=== PATIENT | female | born 1960 | race Caucasian/White ===

== ENCOUNTER → 2019-07-11 | Outpatient (CLI) | payer OTHER ==
--- NOTE | 2019-07-11 16:03 | REP ---
Bilateral lower extremity duplex venous ultrasound: Venous insufficiency study. History: Venous insufficiency. Varicose veins lower extremities with pain. Right lower extremity findings: Significant venous reflux is observed in the deep system as well as the greater saphenous vein proximal and mid level. There are collateral veins at the gastrocnemius in the proximal calf extending to the distal calf with reflux. Reflux greater than 0.5 seconds in duration is observed in the common femoral vein, proximal and mid greater saphenous vein, proximal superficial femoral vein, mid superficial femoral vein, and popliteal vein. The greater saphenous vein measures 4.4 mm in AP dimension at the saphenofemoral junction and demonstrates 2.2 seconds of reflux. Its dimensions are 4.2 mm at mid thigh where there is 5.7-second duration reflux. The greater saphenous vein measures 3.1 mm at the knee without visible reflux. The lesser saphenous vein measures 1.8 mm. Left lower extremity findings: There is reflux in the deep system in the left lower extremity including the common femoral vein through the popliteal vein. Reflux is observed in the mid and distal greater saphenous vein. There is a proximal calf collateral vein extending down to the foot with reflux and varicosities. The greater saphenous vein at the level of the proximal saphenofemoral junction is 5.1 mm in diameter. The greater saphenous vein measures 2.4 mm in diameter at mid thigh where there is 5 seconds duration reflux. The greater saphenous vein at the knee measures 2.7 mm where there is 1.3 seconds duration reflux. The lesser saphenous vein measures 2.4 mm. Impression: Bilateral deep and superficial system venous reflux. Electronically Signed by Edd Ramos MD 07/11/2019 04:30 P
== END ==
LOC: M RAD 08:43
PROVIDERS: ATTEND Surgery Vascular Surgery
DX: I83.813 Varicose veins of bilateral lower extremities with pain (principal)

== ENCOUNTER → 2019-09-18 | Outpatient (REF) | LOC: M LAB LCGH 15:33 | PROVIDERS: ATTEND Surgery | DX: K81.1 Chronic cholecystitis (principal); K80.80 Other cholelithiasis without obstruction ==

== ENCOUNTER → 2020-01-20 | Outpatient (CLI) | payer OTHER | LOC: M PAIN 10:30 | PROVIDERS: ATTEND Nurse Practitioner Family | DX: Z53.20 Procedure and treatment not carried out because of patient's decision for unspecified reasons (principal) ==

== ENCOUNTER → 2020-02-04 | Outpatient (CLI) | payer OTHER ==
--- NOTE | 2020-02-06 01:51 | ECWPNPC ---
PATIENT NAME: OSWALD SCHAFER : 1960 GENDER: FEMALE VISIT DATE: 02/04/2020 DISCHARGE DATE: 02/04/20 1148 VISIT LOCKED DATE TIME: PHYSICIAN: NETTE PAZ RESOURCE: NETTE PAZ REASON FOR APPOINTMENT 1. NECK AND BACK HISTORY OF PRESENT ILLNESS PAIN SCREENING: PATIENT HAS A COMPLAINT OF ACUTE OR CHRONIC PAIN :YES LOCATION OF PAIN:NECK, LOW BACK INTENSITY OF PAIN (SCALE OF 1 TO 10):6 WHAT DOES YOUR PAIN FEEL LIKE:ACHING, SORE DURATION:MAINLY DURING THE DAY, AWAKENS FROM SLEEP 59-YEAR-OLD FEMALE IN FOR INITIAL PAIN CONSULT. SHE STATES THE PAIN IS LOCATED IN HER NECK AND BACK RATING HER PAIN CURRENTLY AT A 6 OUT OF 10 AND DESCRIBING IT ACHING, AND SORE. THE PATIENT WAS HURT IN A WORK RELATED INCIDENT IN 2009 SHE IS CURRENTLY COVERED UNDER WORKERS COMPENSATION HOWEVER HER CASE ENDS IN SEPTEMBER 2020. THE PATIENT HAS TAKEN PHYSICAL THERAPY IN THE PAST TO HELP WITH HER SYMPTOMS AND SHE ADMITS TO SOME RELIEF WITH THIS. FALL RISK SCREENING: SCREENING :NO FALLS REPORTED IN THE LAST YEAR CURRENT MEDICATIONS TAKING METHOTREXATE 2.5 MG TABLET 8 TABLETS WEEKLY ORALLY TAKING FOLIC ACID 1 MG TABLET 1 TABLET ORALLY ONCE A DAY TAKING HUMIRA 40 MG/0.8ML PREFILLED SYRINGE KIT 0.8 ML SUBCUTANEOUS EVERY OTHER WEEK TAKING NAPROXEN 500 MG TABLET 1 TABLET WITH FOOD OR MILK ORALLY EVERY 12 HRS TAKING PANTOPRAZOLE SODIUM 40 MG TABLET DELAYED RELEASE 1 TABLET ORALLY ONCE A DAY TAKING ALEVE 220 MG TABLET 2 TABLETS WITH FOOD OR MILK NEEDED ORALLY EVERY 12 HRS NEEDED MEDICATION LIST REVIEWED AND RECONCILED WITH THE PATIENT PAST MEDICAL HISTORY POLYNEUROPATHY LOW BACK PAIN NECK PAIN SHOULDER PAIN HEADACHE DEPRESSION LEG PAIN RHEUMATOID ARTHRITIS 2017 VARICOSE VEINS PYRIDOXINE DEFICIENCY SEVERE DEGENERATIVE DISC DISEASE AT L5-S1 WITH A GRADE 1 SPONDYLOLISTHESIS OF L5 ON S1 MODERATELY SEVERE OSTEOARTHRITIC CHANGES IN THE L5-S1 FACETS 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 SOCIAL HISTORY GENERAL: TOBACCO USE ARE YOU A:NONSMOKER OTHERS AT HOME: NONE. DIET: REGULAR WITH MODIFICATIONS DUE TO DIVERTICULOSIS. LANGUAGE LANGUAGES SPOKEN:CZECH RECREATIONAL DRUG USE DRUG USE?NO EXERCISE: SHOULDER STRETCHES. LEARNING BARRIERS / SPECIAL NEEDS HEARING IMPAIRED?YES VISION IMPAIRED?YES COGNITIVELY IMPAIRED?NO :HEARING AIDES :CORRECTIVE LENSES READINESS TO LEARN?YES LEARNING PREFERENCES?NO PAIN CLINIC PFS, CLERGY, PUBLIC HEALTH REFERRALS PFS REFERRAL NEEDED?NO CLERGY REFERRAL NEEDED?NO PUBLIC HEALTH REFERRAL NEEDED?NO WAS THE PROVIDER NOTIFIED OF ANY PERTINENT INFO? N/A HAS THE PATIENT BEEN EDUCATED REGARDING HIS/HER PLAN OF CARE?YES HAS THE PATIENT BEEN EDUCATED REGARDING PAIN, THE RISK FOR PAIN, THE IMPORTANCE OF EFFECTIVE PAIN MANAGEMENT, AND THE PAIN ASSESSMENT PROCESS?YES LATEX QUESTIONNAIRE LATEX ALLERGY : HAVE YOU EVER DEVELOPED ANY TYPE OF REACTION AFTER HANDLING LATEX PRODUCTS SUCH RUBBER GLOVES, CONDOMS, DIAPHRAGMS, BALLOONS, SOCKS, OR UNDERWEAR?NO LATEX ALLERGY : HAVE YOU EVER DEVELOPED ANY TYPE OF REACTION DURING OR AFTER DENTAL APPOINTMENT, VAGINAL/RECTAL EXAMINATION, SURGICAL PROCEDURE, OR ANY OTHER EXPOSURE?NO DATE ASKED : 01/16/2020 LATEX RISK : HAVE YOU EVER HAD ANY DIFFICULTY BREATHING OR HIVES AFTER EATING OR HANDLING ANY FRUITS, OR VEGETABLES; SUCH KIWI, BANANAS, STONE FRUITS, OR CHESTNUTSNO LATEX RISK : DO YOU HAVE A PREVIOUS PERSONAL HISTORY OF MORE THAN NINE SURGERIES, SPINA BIFIDA, OR REPEATED CATHERIZATIONS? NO LATEX RISK : ARE YOU FREQUENTLY EXPOSED TO LATEX PRODUCTS IN YOUR OCCUPATION?YES CAFFEINE CAFFEINE USE?YES HOW OFTEN AND HOW MUCH? OCCASIONALLY HAS CHOCOLATE OR SODA ADVANCE DIRECTIVE ADVANCE DIRECTIVE DISCUSSED WITH PATIENT:YES DAUGHTER GENESIS FERNANDES BROTHER JUANITA DO NOT RESUSCITATE FAITH [id number] SIKHISM MARITAL STATUS: .. ALCOHOL SCREENING DID YOU HAVE A DRINK CONTAINING ALCOHOL IN THE PAST YEAR?YES HOW OFTEN DID YOU HAVE SIX OR MORE DRINKS ON ONE OCCASION IN THE PAST YEAR?NEVER (0 POINTS) HOW MANY DRINKS DID YOU HAVE ON A TYPICAL DAY WHEN YOU WERE DRINKING IN THE PAST YEAR?3 OR 4 (1 POINT) HOW OFTEN DID YOU HAVE A DRINK CONTAINING ALCOHOL IN THE PAST YEAR?MONTHLY OR LESS (1 POINT) POINTS2 INTERPRETATIONNEGATIVE OCCUPATION: SUPERVISOR [employer]. PRE-SCREENING PHONE CALL DONE 01-16-20 Indra CHANDRA RN. HOSPITALIZATION/MAJOR DIAGNOSTIC PROCEDURE SURGERIES DIVERTICULITIS 05/2015 REVIEW OF SYSTEMS REVIEWED BY: PROVIDER: FRANK PADILLA . CONSTITUTIONAL: ANY CHANGE IN YOUR MEDICAL CONDITION? NO . CHILLS NO . FEVER NO . INFECTION: DO YOU HAVE NEW INFECTIONS? NO . DO YOU HAVE HISTORY OF MRSA? NO . MUSCULOSKELETAL: ANY NEW PATTERNS OF PAIN OR NUMBNESS? YES, NOT BAD FIRST WHEN PT. WAS WORKING 5 DAYS A WEEK . SYTEMIC LUPUS NO . GASTROENTEROLOGY: ANY NEW CHANGE IN BOWEL CONTROL? NO . BARRETTS ESOPHAGUS NO . CIRRHOSIS NO . HEPATITIS NO . LIVER FAILURE NO . ACID REFLUX NO . UNEXPLAINED WEIGHT LOSS NO . GENITOURINARY: ANY NEW CHANGE IN BLADDER CONTROL? NO . IS THERE A CHANCE YOU COULD BE ? NO . HEMATOLOGY/LYMPH: DO YOU TAKE ANY BLOOD THINNERS? (FOR EXAMPLE- COUMADIN, PLAVIX, AGGRENOX, PLATEL, PRADAXA, OR XARELTO) NO . WHEN WAS YOUR LAST DOSE? DATE: TIME: . LOW PLATELET COUNT NO . SICKLE CELL DISEASE NO . VON WILLIEBRANDS NO . FACTOR V LEIDEN NO . THALLASEMIA NO . ANEMIA NO . EASY BRUISING NO . NEUROLOGY: HAVE YOU FALLEN IN THE PAST 12 MONTHS? NO . ANY NEW EXTREMITY NUMBNESS OR WEAKNESS? NO . HEAD INJURY NO . DEMENTIA NO . CEREBRAL PALSY NO . MULTIPLE SCLEROSIS NO . DIZZINESS NO . HEADACHE NO . STROKES NO . VERTIGO NO . CARDIOLOGY: DO YOU HAVE A PACEMAKER OR DEFIBRILLATOR? NO . ANGINA NO . HEART ATTACK NO . HEART SURGERY NO . CONGESTIVE HEART FAILURE/FLUID OVERLOAD NO . CHEST PAIN NO . HIGH BLOOD PRESSURE NO . IRREGULAR HEART BEAT NO . RESPIRATORY: HAVE YOU BEEN SICK IN THE PAST WEEK? NO . FEVER NO . FLU LIKE SYMPTOMS? NO . CPAP NO . BYPAP NO . ASTHMA NO . EMPHYSEMA NO . CHRONIC LUNG DISEASES NO . SHORTNESS OF BREATH ON EXERTION NO . COUGH NO . SNORING NO . INTEGUMENTARY: DO YOU HAVE ANY RASHES OR OPEN SORES? NO . ALLERGIC/IMMUNO: ARE YOU ALLERGIC TO IV DYE? NO . ANY NEW ALLERGIES? NO . PSYCHIATRIC: DO YOU HAVE THOUGHTS OF HURTING YOURSELF OR SOMEONE ELSE? NO . ARE YOU ABUSED, NEGLECTED, OR IN AN UNSAFE ENVIRONMENT? NO . ENDOCRINOLOGY: ARE YOU DIABETIC? NO . THYROID DISORDER NO . OTHER: DO YOU NEED ANY PRESCRIPTIONS? NO . IF YES, PLEASE LIST: ____ . ANY NEW PROBLEMS WITH YOUR MEDICATIONS? NO . WHEN DID YOU LAST EAT? ____ . WHEN DID YOU LAST DRINK? ____ . WHAT DID YOU LAST DRINK? ____ . NAME OF PERSON DRIVING YOU HOME? ____ . DO YOU HAVE ANY OTHER QUESTIONS OR CONCERNS YES, WANTS TO DISCUSS THE DIFFERENCE BETWEEN PAIN CLINIC AND PHYSICAL THERAPY, AND ALSO PAIN TREATMENT OPTIONS . VITAL SIGNS WT 143.6 LBS, HT 56 IN, BMI 32.19 INDEX, BP 116/77 MM HG, HR 63 /MIN, RR 18 /MIN, TEMP 97.0 F, OXYGEN SAT % 97%, SAFE IN ENV? (Y/N) YES, NA INITIALS AW 1054, REVIEWED BY: KARIN PEDRAZA LPN. EXAMINATION GENERAL EXAMINATION: GENERALNO ACUTE DISTRESS, WELL NOURISHED AND HYDRATED. PSYCHAPPROPRIATE MOOD AND AFFECT . NECK:DENIES POINT TENDERNESS ALONG CERVICAL SPINE, SURROUNDING SKIN SHOWS NO ERYTHEMA, ECCHYMOSIS, INCREASED WARMTH, AND/OR SKIN ERUPTIONS NOTED. PATIENT DOES ENDORSE INCREASED PAIN WITH FACET LOADING ON THE RIGHT SIDE. . LUNGS:CLEAR TO AUSCULTATION BILATERALLY, NO WHEEZES, RHONCHI, RALES. HEART:NO MURMURS, REGULAR RATE AND RHYTHM. BACK:DENIES POINT TENDERNESS ALONG LUMBAR SPINE, SURROUNDING SKIN SHOWS NO ERYTHEMA, ECCHYMOSIS, INCREASED WARMTH, AND/OR SKIN ERUPTIONS NOTED. . MUSCULOSKELETAL:NOTABLE WEAKNESS OF THE RIGHT LOWER EXTREMITY HOWEVER PATIENT STATES SHE HAD A RECENT HIP REPLACEMENT AND THAT IS THE REASON FOR THE WEAKNESS, LEFT LOWER EXTREMITY WITHIN NORMAL LIMITS . 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 CLINICAL NOTES: 59-YEAR-OLD FEMALE IN FOR WORKER'S COMP. CHRONIC PAIN INITIAL PAIN VISIT CONSULT. GIVEN PRESENTING SYMPTOMS AND RESULTS PHYSICAL EXAMINATION RECOMMEND THERAPEUTIC CERVICAL FACET BLOCK C5-C6 C6-C7 WITH POST PROCEDURAL FOLLOW-UP. PATIENT HAS EXPRESSED UNDERSTANDING OF AND WAS IN AGREEMENT WITH TREATMENT PLAN. GIVEN TIME TO ASK QUESTIONS AND EXPRESS CONCERNS. PROCEDURES PN WORKMANS' COMP OPINION IN YOUR OPINION, WAS THE INCIDENT THAT THE PATIENT DESCRIBED THE COMPETENT MEDICAL CAUSE OF THIS INJURY/ILLNESS? YES ARE THE PATIENT'S COMPLAINTS CONSISTENT WITH HIS/HER HISTORY OF THE INJURY/ILLNESS? YES IS THE PATIENT'S HISTORY OF THE INJURY/ILLNESS CONSISTENT WITH YOUR OBJECTIVE FINDING? YES WHAT IS THE PERCENTAGE OF TEMPORARY IMPAIRMENT? MODERATE TO MARKED = 66.7% IS THE PATIENT WORKING? YES DOCTOR ON SITE: ELIZ PIERCE MD PROCEDURE CODES FA211 ESTABILISHED PATIENT [facility] CHARGE DISPOSITION & COMMUNICATION FOLLOW UP POSTPROCEDURE (REASON: THERAPEUTIC CERVICAL FACET BLOCK C5-C6-C6-C7) ELECTRONICALLY SIGNED BY ABDIEL MORALES ON 02/05/2020 AT 08:27 AM EDT DISCLAIMER : THIS IS A VISIT SUMMARY EXTRACTED FROM THE [employer] CHART. IT IS NOT A COPY OF THE [employer] PROGRESS NOTE. PARISA
== END ==
LOC: M PAIN 10:30
PROVIDERS: ATTEND Family Medicine
DX: M47.812 Spondylosis without myelopathy or radiculopathy, cervical region (principal); M46.96 Unspecified inflammatory spondylopathy, lumbar region

== ENCOUNTER 2021-03-28 15:42 | Outpatient (CLI) | payer OTHER ==
[~2021-03-28] VITALS: Ht 168.9 cm; Wt 54.0 kg
[~2021-03-28 15:42] MED LIST: ZOLEDRONIC ACID 5 MG in IV 1 EA IV ONE
[2021-03-28 16:07] VITALS: BP 125/77
[2021-03-28 16:50] VITALS: BP 126/74
== END 2021-03-28 17:00 | disposition home or self-care (01) ==
LOC: M INFU 15:42
PROVIDERS: ATTEND Internal Medicine Endocrinology, Diabetes & Metabolism
DX: M81.0 Age-related osteoporosis without current pathological fracture (principal); Z88.0 Allergy status to penicillin
CPT/HCPCS: 96365; J3489

== ENCOUNTER → 2022-02-01 | Outpatient (CLI) | payer MEDICARE, OTHER | LOC: M PAIN 09:45 | PROVIDERS: ATTEND Anesthesiology | DX: M54.2 Cervicalgia (principal); M79.10 Myalgia, unspecified site; G62.9 Polyneuropathy, unspecified; M54.50 Low back pain, unspecified; F32.A Depression, unspecified; M06.9 Rheumatoid arthritis, unspecified; I83.90 Asymptomatic varicose veins of unspecified lower extremity; M51.37 Other intervertebral disc degeneration, lumbosacral region; Z96.641 Presence of right artificial hip joint; Z79.1 Long term (current) use of non-steroidal anti-inflammatories (NSAID); Z79.899 Other long term (current) drug therapy; Z88.0 Allergy status to penicillin ==

== ENCOUNTER 2022-04-04 13:06 | Outpatient (CLI) | payer MEDICARE, OTHER ==
[~2022-04-04] VITALS: Ht 167.6 cm; Wt 61.4 kg
[2022-04-04 13:22] VITALS: BP 116/73
[2022-04-04 13:57] VITALS: BP 124/72
== END 2022-04-04 13:55 | disposition home or self-care (01) ==
LOC: M INFU 13:06
PROVIDERS: ATTEND Internal Medicine Endocrinology, Diabetes & Metabolism
DX: M81.0 Age-related osteoporosis without current pathological fracture (principal); Z88.0 Allergy status to penicillin
CPT/HCPCS: 96365; J3489